=== PATIENT | female | born 2005 | race Two or more races ===

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

== ENCOUNTER 2025-04-02 10:50 | Emergency (ER) | payer MEDICAID ==
[~2025-04-02] VITALS: Ht 160 cm; Wt 53.4 kg
[~2025-04-02 10:50] MED LIST changes: +ESCI-8 PO; +GABA-530 PO; +HYDR-3686 PO; +NO HOME MEDS; -ONDA-243 PO
[2025-04-02 12:58] LABS: LEUKOCYTE ESTERASE ,URINE NEGATIVE (Neg); NITRITES, URINE NEGATIVE (Neg); OCCULT BLOOD,URINE NEGATIVE (Neg); URINE HCG NEGATIVE (NEG)
[2025-04-02 13:01] LABS: UA COLLECTION TYPE VOIDED
[2025-04-02 13:13] LABS: SQUAMOUS EPITHELIAL CELL,UR MODERATE /LPF (FEW)
[2025-04-02 13:19] LABS: MEAN PLATELET VOLUME 8.3 FL (7.4-10.4); RED CELL DISTRIBUTION WIDTH 13.6 % (11.5-14.5)
[2025-04-02 13:30] LABS: CREATININE 0.75 MG/DL (0.40-0.90); TOTAL CARBON DIOXIDE 29.4 MMOL/L (24-32); eCRCL 100 ML/MIN; eGFR > 90 ML/MIN
--- NOTE | 2025-04-02 14:19 | Physician Documentation ---
History of Present Illness Chief Complaint: Abdominal Pain Stated Complaint: ABD PAIN Time Seen by MD: 14:01 Primary Medical Doctor: None Mode of Arrival: Ambulatory HPI 19-year-old female presenting with abdominal pain She tells me that her pain started last night. She states that yesterday she had a normal day including normal activities, eating and drinking. The pain is worse in her upper central abdomen. She also has pain across her lower abdomen. She denies any fevers, chills, nausea, vomiting. She did have some constipation but then had a normal bowel movement. She had a normal menstrual cycle this month. No dysuria or hematuria. No chest pain or shortness of breath. No acid reflux type symptoms. No history of similar pain. She did not take any medications or other treatments. Medication Reconciliation Allergies: Coded Allergies: No Known Allergies (Unverified , 04/02/25) Scheduled Escitalopram Oxalate (Escitalopram Oxalate), 10 MG PO DAILY Scheduled PRN Gabapentin (Gabapentin), 100-300 MG PO DAILY PRN for social anxiety Hydroxyzine Hcl* (Atarax*), 25-50 MG PO BID PRN for anxiety/sleep Miscellaneous Medications Home Med List (No Home Medications), (Reported) Past Medical History Past Medical History: No Pertinent History Review of Systems Gastrointestinal: Reports: abdominal pain, constipated Physical Exam Vital Signs: Temperature: 98.4, Source: Oral, Heart Rate: 87, Respiratory Rate: 16, BP: 115/68, Pulse Oximetry: 98, Weight: 53.400 Oxygen Flow Rate: 0 Physical Exam General: This is a pleasant and healthy appearing thin young female sitting calmly in bed HEENT: Atraumatic, oropharynx is moist Heart: Regular rate and rhythm, normal-appearing peripheral perfusion Lungs: normal work of breathing, normal oxygen saturation on room air Abdomen: Soft, nondistended. The patient has mild generalized tenderness on palpation, including in the upper and lower abdomen, it and becomes tearful when I palpate her abdomen. No significant pain when I shake her abdomen. No rebound or guarding Neuro: Alert and oriented Psychiatric: Calm and cooperative with exam Progress Results/Orders Results/Orders Orders - TALIB FULLER MD Straight Cath For Urine Sample (04/02/25 12:20) Completed Orders - TALIB FULLER MD Hcg, Ur Ql (04/02/25 12:20) Cbc/Diff (04/02/25 12:20) BMP (04/02/25 12:20) Lipase (04/02/25 12:20) CMP (04/02/25 12:20) Ua W/Microscopic, Cult If Ind (04/02/25 12:42) Vital Signs 04/02/25 04/02/25 04/02/25 04/02/25 11:22 12:20 13:03 14:06 Temp 98.4 98.4 98.4 Pulse 104 74 87 Resp 14 16 16 B/P (MAP) 102/66 112/73 (86) 115/68 (84) Pulse Ox 98 99 98 O2 Flow Rate 0 0 0 Laboratory Tests Test 04/02/25 12:42 04/02/25 12:48 Urine Specimen Description Voided Urine Color Yellow Urine Clarity Slightly cloudy Urine pH 7.0 Urine Specific [place] 1.015 Urine Protein Negative Urine Glucose (UA) Negative Urine Ketones Negative Urine Occult Blood Negative Urine Nitrite Negative Urine Bilirubin Negative Urine Urobilinogen 1.0 Urine Leukocyte Esterase Negative Urine RBC 0-2 Urine WBC 0-4 Urine Squamous Epithelial Cells Moderate Urine Transitional Epithelial Cells Few Urine Bacteria Few Urine Culture Indicated Not ind Volume Urine Centrifuged 10 ml Urine HCG, Qualitative Negative Urine Comment White Blood Count 8.4 Red Blood Count 4.17 L Hemoglobin 11.7 L Hematocrit 35.0 Mean Corpuscular Volume 84.1 Mean Corpuscular Hemoglobin 28.1 Mean Corpuscular Hemoglobin Concent 33.4 Red Cell Distribution Width 13.6 Platelet Count 243 Mean Platelet Volume 8.3 Neutrophils (%) (Auto) 65.6 Lymphocytes (%) (Auto) 26.6 Monocytes (%) (Auto) 6.5 Eosinophils (%) (Auto) 0.9 Basophils (%) (Auto) 0.4 Neutrophils # (Auto) 5.5 Lymphocytes # (Auto) 2.2 Monocytes # (Auto) 0.6 Eosinophils # (Auto) 0.1 Basophils # (Auto) 0.0 CBC Comment Sodium Level 136 Potassium Level 3.7 Chloride Level 102 Carbon Dioxide Level 29.4 Anion Gap 5 L Blood Urea Nitrogen 5 L Creatinine 0.75 Estimated GFR/1.73 m2 > 90 BUN/Creatinine Ratio 6.7 L Glucose Level 83 Calcium Level 8.7 Total Bilirubin 0.8 Aspartate Amino Transf (AST/SGOT) 18 Alanine Aminotransferase (ALT/SGPT) 18 Alkaline Phosphatase 84 Total Protein 7.5 Albumin 3.9 Globulin 3.6 Albumin/Globulin Ratio 1.1 Lipase 21 Chemistry Comments EKG/XRAY/CT/US/VASC/MRI EKG : Additional Comment Sinus rhythm, rate 76, QTC 436, RSR prime in V1 and V2, otherwise unremarkable Medical Decision Making Additional Comments Differential includes gastritis, peptic ulcer disease, musculoskeletal pain or strain, , kidney infection, pancreatitis, gallbladder disease Assessment The patient presents with abdominal pain. She has a an overall benign abdominal exam although on multiple re-evaluations it seemed like her pain is primarily in the central epigastric region. It did improve with a GI cocktail. Her laboratory testing is unremarkable, no evidence of hepatitis, pancreatitis, or other dangerous abnormalities. She later reported episodes of syncope related to this pain in the past, and so an EKG was obtained that shows no dangerous findings. Overall, no dangerous cause identified and I do not feel that further workup or testing is indicated at this time. She will be discharged with an antacid medication for possible gastritis, other symptomatic treatment, and return precautions Departure Time of Disposition: 15:16 Disposition: 01 HOME / SELF CARE / HOMELESS Impression: Primary Impression: Acute gastritis Additional Impression: Abdominal pain Condition: Stable Discharge Instructions: Abdominal Pain (Nonspecific), Gastritis, Adult Referrals: NO PRIMARY CARE PROVIDER (PCP) Education Educated: Patient Educated regarding: diagnosis, treatment, need for follow up Signature Scribe Signature: margot Attestation: TALIB Shultz MD Apr 02, 2025 14:19
[2025-04-02] MEDS ORDERED: ibuprofen tablet 400 MG TABLET PO ONE (14:20)
[2025-04-02] MEDS: mag hydrox/Alum hydrox/simeth 30ml oral suspension PO ONE (14:38)
[2025-04-02] MEDS: LIDOcaine 2% Viscous 15ml cup MM ONE (14:38)
--- NOTE | 2025-04-02 15:13 | ELECTROCARDIOGRAPH REPORT ---
[facility] Test Date: 2025-04-02 Test Time: 15:11:10 Pat Name: CEASAR CHEN Department: EMERGENCY ROOM [id number] Room: Gender: F Php Programmer: JUAN M : 2005 Requested By: TALIB FULLER Order Number: [id number] Reading MD: Measurements Intervals [place] Rate: 76 P: 68 CO: 153 QRS: 44 QRSD: 101 T: 42 QT: 387 QTc: 436 Interpretive Statements Sinus rhythm RSR' in V1 or V2, probably normal variant Baseline wander in lead(s) I,II,aVR,V4,V6 Please click the below link to view image of tracing.
[2025-04-02 15:20] VITALS: BP 115/68; PULSE 87; RESP 16; TEMP 98.4; O2SAT 98
== END 2025-04-02 15:22 | disposition home or self-care (01) ==
LOC: ER 10:50
DX: K29.00 Acute gastritis without bleeding (principal); K59.00 Constipation, unspecified; R10.30 Lower abdominal pain, unspecified; R07.9 Chest pain, unspecified
CPT/HCPCS: 36415; 80053; 81001; 81025; 83690; 85025; 93005; 99284